=== PATIENT | male | born 1965 | race Caucasian/White ===

== ENCOUNTER 2018-05-31 17:37 | Emergency (ER) | END 2018-05-31 20:11 | disposition home or self-care (01) ==

== ENCOUNTER 2018-06-07 16:20 | Emergency (ER) | END 2018-06-07 20:22 | disposition home or self-care (01) ==

== ENCOUNTER 2018-08-30 14:45 | Emergency (ER) | END 2018-08-30 17:14 | disposition home or self-care (01) ==